=== PATIENT | female | born 1955 | race Caucasian/White ===

== ENCOUNTER 2023-10-28 21:14 | Emergency (ER) | payer OTHER ==
[~2023-10-28] VITALS: Ht 157.5 cm; Wt 67.0 kg
[2023-10-28 21:38] VITALS: BP 177/74; PULSE 84; RESP 16; TEMP 98.2; O2SAT 100
[2023-10-28] MEDS ORDERED: ONDANSETRON 4MG ODT PO ONE (21:45)
[2023-10-28 22:54] LABS: BASOPHILS % 0.9 % (0.0-2.0); EOSINOPHILS % 0.8 % (0.0-5.0); HEMOGLOBIN. 12.7 g/dL (12.0-16.0); MEAN CORPUSCULAR HEMOGLOBIN 32.1 pg (28.0-32.0); MEAN CORPUSCULAR HGB CONC 34.4 g/dL (31.0-37.0); MEAN CORPUSCULAR VOLUME 93.2 fL (81.0-99.0); MEAN PLATELET VOLUME 7.9 fl (7.4-10.4); MONOCYTES % 5.7 % (2.0-8.0); NEUTROPHILS % 66.6 % (40.0-76.0); PLATELET 326 x1000/uL (130-400); RED BLOOD CELL COUNT 3.97 mill/uL (4.2-5.4); RED CELL DISTRIBUTION WIDTH 12.4 % (11.6-14.6); WHITE BLOOD COUNT 6.3 x1000/uL (4.5-11.0)
[2023-10-28 22:56] LABS: CHLORIDE 102 mEq/L (98-107); SODIUM 140 mEq/L (136-145)
[2023-10-28 22:57] LABS: CALCIUM 10.5 mg/dL (8.7-10.4); CARBON DIOXIDE 27 mEq/L (21-32)
[2023-10-28 23:02] LABS: CREATININE 0.7 mg/dL (0.6-1.0); GLUCOSE 101 mg/dL (70-105); UREA NITROGEN BLOOD 16 mg/dL (9-23)
[2023-10-28 23:03] LABS: TROPONIN I HIGH SENSITIVITY 5 ng/L (3.0-34)
[2023-10-28 23:29] LABS: *AMPHETAMINES SCREEN URINE NEGATIVE (NEGATIVE); *BARBITURATES SCREEN URINE NEGATIVE (NEGATIVE); *BENZODIAZEPINES SCREEN URINE NEGATIVE (NEGATIVE); *COCAINE SCREEN URINE NEGATIVE (NEGATIVE)
[2023-10-28 23:30] LABS: CANNABINOID URINE SCREEN NEGATIVE (NEGATIVE); ECSTASY MDMA SCREEN URINE NEGATIVE (NEGATIVE); METHADONE URINE SCREEN NEGATIVE (NEGATIVE); OPIATES URINE SCREEN NEGATIVE (NEGATIVE); PHENCYCLIDINE URINE SCREEN NEGATIVE (NEGATIVE)
[2023-10-28] MEDS: ONDANSETRON 4MG ODT PO NR (23:49)
[2023-10-29 00:49] LABS: TROPONIN I HIGH SENSITIVITY 8 ng/L (3.0-34)
== END 2023-10-29 01:31 | disposition home or self-care (01) ==
LOC: ER 21:14
DX: R07.89 Other chest pain (principal)
CPT/HCPCS: 99285; 71045; 80305; 80048; 85025; 84484 ×2; 36415; 93005; Q0162